=== PATIENT | male | born 1985 | race Caucasian/White ===

== ENCOUNTER 2018-12-11 02:38 | Inpatient (IN) | payer SELFPAY ==
[2018-12-11] MEDS ORDERED: TETANUS & DIPHTHERIA TOX,ADULT 0.5 ML VIAL ONE (03:09)
[2018-12-11] MEDS ORDERED: CEFTRIAXONE/SWI 1gm 1 GM/10 ML SYR ONE (03:09)
[2018-12-11] MEDS ORDERED: HYDROCODONE/APAP 10/325 TAB ONE (03:28)
[2018-12-11 04:23] LABS: Potassium 3.3 mmol/L (3.5-5.1)
[2018-12-11 04:37] LABS: Absolute Lymphocytes (CBC) 1.9 K/uL (0.7-4.9); Basophils % 1.3 % (0-1.3); Hematocrit 41.4 % (39.6-49.0); Lymphocytes % 17.4 % (15.3-44.8); MPV 6.6 fL (7.6-11.3); RBC Red Blood Cell Count 4.62 M/uL (4.33-5.43)
--- NOTE | 2018-12-11 06:23 | EDPHYS ---
Physician Documentation [facility] Name: Boyd Sherman Age: 33 yrs Sex: Male : 1985 Arrival Date: 12/11/2018 Time: 03:29 Bed 15 Private MD: ED Physician Elian Dutton HPI: 12/11 06:03 This 33 yrs old Male presents to ER via Unassigned with complaints of Hand gs Pain. 06:03 The patient or guardian reports pain, swelling, tenderness. The complaints affect the gs right hand diffusely. Context: The problem was sustained at home, resulted from using own fist to strike. Onset: The symptoms/episode began/occurred suddenly. Modifying factors: The symptoms are alleviated by nothing, the symptoms are aggravated by nothing. Associated signs and symptoms: Pertinent negatives: numbness distally. Severity of symptoms: At their worst the symptoms were severe, in the emergency department the symptoms are unchanged. The patient has not experienced similar symptoms in the past. Historical: - PMHx: 06:04 Hypertension; gs - Social history:: Patient/guardian denies using street drugs, The patient lives at home. ROS: 06:04 All other systems are negative. gs Exam: 06:04 Head/Face: Normocephalic, atraumatic. Eyes: Pupils equal round and reactive to light, gs extra-ocular motions intact. Lids and lashes normal. Conjunctiva and sclera are non-icteric and not injected. Cornea within normal limits. Periorbital areas with no swelling, redness, or edema. ENT: Nares patent. No nasal discharge, no septal abnormalities noted. Tympanic membranes are normal and external auditory canals are clear. Oropharynx with no redness, swelling, or masses, exudates, or evidence of obstruction, uvula midline. Mucous membranes moist. Neck: Trachea midline, no thyromegaly or masses palpated, and no cervical lymphadenopathy. Supple, full range of motion without nuchal rigidity, or vertebral point tenderness. No Meningismus. Chest/axilla: Normal chest wall appearance and motion. Nontender with no deformity. No lesions are appreciated. Cardiovascular: Regular rate and rhythm with a normal S1 and S2. No gallops, murmurs, or rubs. Normal PMI, no JVD. No pulse deficits. Respiratory: Lungs have equal breath sounds bilaterally, clear to auscultation and percussion. No rales, rhonchi or wheezes noted. No increased work of breathing, no retractions or nasal flaring. Abdomen/GI: Soft, non-tender, with normal bowel sounds. No distension or tympany. No guarding or rebound. No evidence of tenderness throughout. Back: No spinal tenderness. No costovertebral tenderness. Full range of motion. Neuro: Awake and alert, GCS 15, oriented to person, place, time, and situation. Cranial nerves II-XII grossly intact. Motor strength 5/5 in all extremities. Sensory grossly intact. Cerebellar exam normal. Normal gait. 06:04 Constitutional: The patient appears alert, awake. 06:04 Musculoskeletal/extremity: ROM: limited active range of motion, limited passive range of motion, Circulation is intact in all extremities. 06:04 Skin: abscess, that is moderate sized, with fluctuance, cellulitis, that is severe. Vital Signs: 03:00 BP 160 / 93; Pulse 93; Resp 16; Pulse Ox 96% on R/A; lc1 04:00 BP 150 / 94; Pulse 87; Resp 18; Pulse Ox 98% on R/A; lc1 05:03 BP 148 / 98; Pulse 79; Resp 18; Pulse Ox 99% on R/A; lc1 06:30 BP 143 / 87; Pulse 80; Resp 17 S; Pulse Ox 99% on R/A; cc3 08:00 BP 129 / 93; Pulse 84; Resp 15; Temp 97.7; Pulse Ox 100% ; Weight 86.18 kg; Height 5 hb ft. 72 in. (335.28 cm); 09:30 BP 126 / 86; Pulse 80; Resp 16; Pulse Ox 99% on R/A; hb 08:00 Body Mass Index 7.67 (86.18 kg, 335.28 cm) hb MDM: 03:33 Patient medically screened. gs 06:04 Differential diagnosis: open fracture, closed fracture, abscess. Data reviewed: vital gs signs, nurses notes, lab test result(s). Physician consultation: Praany Mejias MD and will see patient in inpatient room. 12/11 04:24 Order name: Basic Metabolic Panel; Complete Time: 05:53 EDMS 12/11 04:39 Order name: CBC with Automated Diff; Complete Time: 05:53 EDMS 12/11 07:34 Order name: CBC with Automated Diff EDMS 12/11 07:34 Order name: CBC with Automated Diff EDMS 12/11 07:34 Order name: Comprehensive Metabolic Panel EDMS 12/11 07:34 Order name: Comprehensive Metabolic Panel EDMS 12/11 07:34 Order name: Magnesium EDMS 12/11 07:34 Order name: Magnesium EDMS 12/11 07:34 Order name: Phosphorus EDMS 12/11 07:34 Order name: Phosphorus EDMS 12/11 07:34 Order name: Protime (+INR) EDMS 12/11 07:34 Order name: Protime (+INR) EDMS 12/11 04:55 Order name: Hand Right W Con EDMS 12/11 05:54 Order name: Hand Right 3 View EDMS 12/11 06:37 Order name: NPO; Complete Time: 06:40 gs 12/11 07:33 Order name: CONS Pharmacy Consult EDMS 12/11 07:33 Order name: CONS Physician Consult EDMS 12/11 07:34 Order name: NPO EDMS 12/11 07:34 Order name: PTT, Activated Partial Thromb EDMS 12/11 07:34 Order name: PTT, Activated Partial Thromb EDMS Administered Medications: No medications were administered Disposition: 12/11/18 06:23 Hospitalization ordered by Fahad Sharma for Inpatient Admission. Preliminary diagnosis is Abscess of bursa, right hand. - Bed requested for Telemetry/MedSurg (Inpatient). - Status is Inpatient Admission. hb - Condition is Stable. - Problem is new. - Symptoms are unchanged. UTI on Admission? No Signatures: [facility] Enedina Talamantes RN RN Luisa Middleton RN RN Elian Dutton MD MD gs Corrections: (The following items were deleted from the chart) 04:54 04:23 CBC+H.LAB.BRZ ordered. EDMS EDMS 04:54 04:23 BASIC METABOLIC PANEL+C.LAB.BRZ ordered. EDLA EDMS 04:54 04:41 CT RIGHT HAND WO CONTRAST ordered. EDMS EDMS 09:23 06:23 Hospitalization Ordered by Fahad Sharma MD for Inpatient Admission. Preliminary dw diagnosis is Abscess of bursa, right hand. Bed requested for Telemetry/MedSurg (Inpatient). Status is Inpatient Admission. Condition is Stable. Problem is new. Symptoms are unchanged. UTI on Admission? No. gs 10:13 09:23 12/11/2018 06:23 Hospitalization Ordered by Fahad Sharma MD for Inpatient hb Admission. Preliminary diagnosis is Abscess of bursa, right hand. Bed requested for Telemetry/MedSurg (Inpatient). Status is Inpatient Admission. Condition is Stable. Problem is new. Symptoms are unchanged. UTI on Admission? No. dw
--- NOTE | 2018-12-11 06:23 | ER ---
Nurse's Notes [facility] Name: Boyd Sherman Age: 33 yrs Sex: Male : 1985 Arrival Date: 12/11/2018 Time: 03:29 Bed 15 Private MD: Diagnosis: Abscess of bursa, right hand Presentation: 12/11 04:20 Presenting complaint: see paper charting. lc1 Historical: - PMHx: 06:04 Hypertension; gs - Social history:: Patient/guardian denies using street drugs, The patient lives at home. Screenin:00 Abuse screen: Denies threats or abuse. Nutritional screening: No deficits noted. lc1 Tuberculosis screening: No symptoms or risk factors identified. Fall Risk None identified. Assessment: 02:00 General: see paper charting. lc1 05:03 Reassessment: No changes from previously documented assessment. Patient and/or family lc1 updated on plan of care and expected duration. Pain level reassessed. 05:13 Reassessment: Patient appears in no apparent distress at this time. Patient and/or cc3 family updated on plan of care and expected duration. Pain level reassessed. Patient is alert, oriented x 3, equal unlabored respirations, skin warm/dry/pink. Received patient from TERRELL Dukes as a case of right hand pain. Patient came back from CT scan department, awaiting result. Patient denies pain at this time. 06:30 Reassessment: Patient appears in no apparent distress at this time. Patient and/or cc3 family updated on plan of care and expected duration. Pain level reassessed. Patient is alert, oriented x 3, equal unlabored respirations, skin warm/dry/pink. 07:30 Reassessment: Patient appears in no apparent distress at this time. Patient and/or hb family updated on plan of care and expected duration. Pain level reassessed. Patient is alert, oriented x 3, equal unlabored respirations, skin warm/dry/pink. Admission ordered, awaiting room assignment at this time. 08:30 Reassessment: Patient appears in no apparent distress at this time. No changes from previously documented assessment. Patient and/or family updated on plan of care and expected duration. Pain level reassessed. Patient is alert, oriented x 3, equal unlabored respirations, skin warm/dry/pink. 09:30 Reassessment: Patient appears in no apparent distress at this time. No changes from hb previously documented assessment. Patient and/or family updated on plan of care and expected duration. Pain level reassessed. Patient is alert, oriented x 3, equal unlabored respirations, skin warm/dry/pink. Vital Signs: 03:00 BP 160 / 93; Pulse 93; Resp 16; Pulse Ox 96% on R/A; lc1 04:00 BP 150 / 94; Pulse 87; Resp 18; Pulse Ox 98% on R/A; lc1 05:03 BP 148 / 98; Pulse 79; Resp 18; Pulse Ox 99% on R/A; lc1 06:30 BP 143 / 87; Pulse 80; Resp 17 S; Pulse Ox 99% on R/A; cc3 08:00 BP 129 / 93; Pulse 84; Resp 15; Temp 97.7; Pulse Ox 100% ; Weight 86.18 kg; Height 5 hb ft. 72 in. (335.28 cm); 09:30 BP 126 / 86; Pulse 80; Resp 16; Pulse Ox 99% on R/A; hb 08:00 Body Mass Index 7.67 (86.18 kg, 335.28 cm) hb ED Course: 02:10 Inserted saline lock: 20 gauge in left antecubital area, using aseptic technique. Blood lc1 collected. 03:29 Patient arrived in ED. fc 03:32 Roseline Boyce is Primary Nurse. lc1 03:33 Elian Dutton MD is Attending Physician. gs 04:00 Patient has correct armband on for positive identification. Bed in low position. Side lc1 rails up X 1. Door closed. Noise minimized. Lights dimmed. Warm blanket given. 04:00 No provider procedures requiring assistance completed. lc1 04:38 Awaiting radiology results. lc1 05:00 Awaiting radiology results. lc1 05:35 Hand Right W Con In Process Unspecified. EDMS 06:17 Hand Right 3 View In Process Unspecified. EDMS 06:22 Fahad Sharma MD is Hospitalizing Provider. gs 07:00 Report given to TERRELL Moran. cc3 10:11 Patient admitted, IV remains in place. hb Administered Medications: No medications were administered Outcome: 06:23 Decision to Hospitalize by Provider. gs 10:11 Admitted to Med/surg accompanied by nurse, via wheelchair, room 213, with chart, Report hb called to EL RN 10:11 Condition: stable 10:11 Instructed on the need for admit, Demonstrated understanding of instructions. 10:13 Patient left the ED. hb Signatures: Dispatcher [employer] EDMS Monique Lawton RN RN Roseline Vargas lc1 Luisa Middleton RN RN Elian Dutton MD MD gs Cordel, Charlene cc3 Corrections: (The following items were deleted from the chart) 05:17 05:13 Reassessment: Patient appears in no apparent distress at this time. Patient cc3 and/or family updated on plan of care and expected duration. Pain level reassessed. Patient is alert, oriented x 3, equal unlabored respirations, skin warm/dry/pink. Patient came back from CT scan department, awaiting result. cc3 05:18 05:13 Reassessment: Patient appears in no apparent distress at this time. Patient cc3 and/or family updated on plan of care and expected duration. Pain level reassessed. Patient is alert, oriented x 3, equal unlabored respirations, skin warm/dry/pink. Received patient from TERRELL Dukes as a case of hand pain. Patient came back from CT scan department, awaiting result. Patient denies pain at this time. cc3
[2018-12-11] MEDS ORDERED: ACETAMINOPHEN 500 MG TAB PO PRN (07:26)
[2018-12-11] MEDS ORDERED: ONDANSETRON 4 MG/2 ML VIAL IV PRN (07:26)
[2018-12-11] MEDS ORDERED: HYDROMORPHONE HCL 1 MG/ML INJ IV PRN (07:26)
[2018-12-11] MEDS ORDERED: VANCOMYCIN/NS 1 gm 1 GM/250 ML BAG IVPB SCH (07:30)
[2018-12-11] MEDS ORDERED: NA CHLORIDE 0.9% 1,000 ML IV SCH (08:00)
[2018-12-11] MEDS ORDERED: Levofloxacin500mg IV 500 MG/100 ML BAG IV SCH (08:00)
--- NOTE | 2018-12-11 08:10 | RAD REPORT ---
EXAM DESCRIPTION: RAD - Hand Right 3 View - 12/11/2018 6:15 am CLINICAL HISTORY: Right hand pain status post injury FINDINGS: No acute fracture or dislocation is seen. Old fracture involves the fifth metacarpal. Soft tissue swelling is present along the dorsal soft tis sues of the hand. No bony destructive lesion noted
[2018-12-11] MEDS ORDERED: ENOXAPARIN 40 MG/0.4 ML SQ SCH (09:00)
[2018-12-11] MEDS ORDERED: VANCOMYCIN 1.5 GM in NA CHLORIDE 0.9% 500 ML IVPB SCH (09:00)
[2018-12-11 10:44] VITALS: BMI 29.7
--- NOTE | 2018-12-11 11:12 | P.HP ---
Certification for Inpatient Patient admitted to: Inpatient With expected LOS: >2 Midnights Patient will require the following post-hospital care: None Practitioner: I am a practitioner with admitting privileges, knowledge of patient current condition, hospital course, and medical plan of care. Services: Services provided to patient in accordance with Admission requirements found in Title 42 Section 412.3 of the Code of Federal Regulations Patient History Date of Service: 12/11/18 Reason for admission: hand abscess History of Present Illness: patient is a 33-year-old gentleman who came to the hospital and was found to have an abscess of the right hand. He states he was upset and punched a wall. He developed a secondary wound. Yesterday he states that it has more swollen and started having drainage. The he came to the emergency room for further evaluation. In the ER he had a large wound on his 3rd knuckle. The spoke to hand surgery and they are going to take patient to the OR. Continue with broad- spectrum antibiotic coverage at this time. Patient will need inpatient admission for further evaluation. Allergies Penicillins Allergy (Verified 08/07/11 08:38) Hives/Rash Home Medications: NK [No Home Meds] 12/11/18 - Past Medical/Surgical History Past Medical History: Patient denies medical history Past Surgical History: Patient denies surgical history - Family History Father Family History: Reviewed- Non-Contributory - Social History Smoking Status: Current every day smoker Alcohol use: No CD- Drugs: No Review of Systems 10-point ROS is otherwise unremarkable Physical Examination - Vital Signs Temperature: 97.7 F Blood Pressure: 126/86 Pulse: 80 Respirations: 16 Pulse Ox (%): 98 - Physical Exam General: Alert, In no apparent distress, Oriented x3 HEENT: Atraumatic, PERRLA, Mucous membr. moist/pink, EOMI, Sclerae nonicteric Neck: Supple, 2+ carotid pulse no bruit, No LAD, Without JVD or thyroid abnormality Respiratory: Clear to auscultation bilaterally, Normal air movement Cardiovascular: Regular rate/rhythm, Normal S1 S2, No murmurs Gastrointestinal: Normal bowel sounds, Soft and benign, Non-distended, No tenderness Musculoskeletal: No clubbing, Swelling, Tenderness, Warmth Integumentary: Tenderness/swelling, Erythema, Warmth Neurological: Normal gait, Normal speech, Normal strength at 5/5 x4 extr, Normal tone, Sensation intact, Cranial nerves 3-12 intact, Normal affect Lymphatics: No axilla or inguinal lymphadenopathy - Studies Laboratory Data (last 24 hrs) 12/11/18 03:35: Sodium 141, Potassium 3.3 L, BUN 12, Creatinine 1.00, Glucose 117 H 12/11/18 03:35: WBC 10.7, Hgb 14.3, Hct 41.4, Plt Count 235 12/11/18 03:33: Sodium Cancelled, Potassium Cancelled, BUN Cancelled, Creatinine Cancelled, Glucose Cancelled 12/11/18 03:33: WBC Cancelled, Hgb Cancelled, Hct Cancelled, Plt Count Cancelled Assessment & Plan - Problems (Diagnosis) (1) Hand abscess Current Visit: Yes Status: Acute - Plan 1. Continue with IV antibiotic 2. Continue with local wound care 3. Hand surgical consultation 4. Gentle IV hydration 5. Monitor CBC 6. Strict blood sugar monitoring 7. Pain control 8. GI and DVT prophylaxis Discharge Plan: Home Plan to discharge in: Greater than 2 days - Advance Directives Does patient have a Living Will: No Does patient have a Durable POA for Healthcare: No - Code Status/Comfort Care Code Status Assessed: Yes Code Status: Full Code Critical Care: No Time Spent Managing PTS Care (In Minutes): 45
[2018-12-11] MEDS ORDERED: PROPOFOL 200 MG/20 ML VIAL IV ONE (11:31)
[2018-12-11] MEDS ORDERED: FENTANYL CITR 100 MCG/2 ML ONE (11:31)
[2018-12-11] MEDS ORDERED: LIDOCAINE 1% MPF 5 ML VIAL ONE (11:31)
[2018-12-11] MEDS ORDERED: MIDAZOLAM HCL 2 MG/2 ML INJ ONE (11:31)
--- NOTE | 2018-12-11 11:42 | RAD REPORT ---
EXAM DESCRIPTION: CT - Hand Right W Con - 12/11/2018 5:58 am CLINICAL HISTORY: The patient is 33 years old and is Male; hand pain W/ abscess 3 DAYS AFTER INJURY TECHNIQUE: Axial computed tomography images of the right upper extremity with intravenous contrast. Sagittal and coronal reformatted images were created and reviewed. This CT exam was performed usi ng one or more of the following dose reduction techniques: automated exposure control, adjustment o f the mA and/or kV according to patient size, and/or use of iterative reconstruction technique. COMPARISON: No relevant prior studies available. FINDINGS: BONES/JOINTS: The bone mineralization and contour is normal. There is no acute fracture. SOFT TISSUES: A focal loculated fluid collection along the dorsum of the hand at the level of th e fourth metacarpal phalangeal joint is present. This collection measures approximately 2.1 x 0.9 cm. There is mild peripheral enhancement. Diffuse edema of the soft tissues of the dorsum of the hand is noted. IMPRESSION: Findings suggest small abscess with associated significant edema of the soft tissues of the dorsum of the hand as described. No underlying acute bony abnormality. Electronically signed by: Katey Spence MD 12/11/2018 5:27 AM CDT Due to temporary technical issues with the PACS/Fluency reporting system, reports are being signed by the in house radiologist as a courtesy to ensure prompt reporting. The interpreting radiologist is gonzález colmenares responsible for the content of the report.
[2018-12-11] MEDS ORDERED: PIPER/TAZO/NS 3.375gm 3.375 GM/100 ML BAG IVPB SCH (12:00)
[2018-12-11] MEDS ORDERED: CLINDAMYCIN INJ 600 MG in NA CHLORIDE 0.9% 50 ML IV SCH (12:00)
[2018-12-11] MEDS ORDERED: KETOROLAC 30 MG/ML INJ ONE (13:04)
[2018-12-11] MEDS ORDERED: ONDANSETRON 4 MG/2 ML VIAL ONE (13:05)
[2018-12-11] MEDS ORDERED: CODEINE 30MG/APAP 300MG TAB PO PRN (13:25)
[2018-12-11 13:56] VITALS: BP 143/92; TEMP 97.9; O2SAT 98
--- NOTE | 2018-12-12 00:45 | OP ---
Surgeon: Pranay Mejias MD Preoperative Diagnosis: Infected right hand. Postoperative Diagnosis: Infected right hand. Procedure Performed: Debridement of skin and subcutaneous tissue, incision and drainage of abscess. Anesthesia: General. Description Of Procedure: After satisfactory induction of general anesthesia, right hand was prepped with Betadine scrub, Betadine paint, dry sterile drapes placed in the usual manner. The arm was pierre vated. Tourniquet was inflated to 250 mmHg. Hand placed on the [place] table. Elliptical incision outlined over the metacarpal head and extended proximally and distally. 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 Flaps undermined curetted, scrubbed with scrub brush, and jet lava ge irrigated with 3 L of dilute Betadine solution. Tourniquet released. Electrocautery used for hem ostasis. Wound packed with Betadine quarter-inch Nu Gauze, 2-inch Lottie, and Kerlix. Patient tolera armando the procedure well and returned to Recovery. HUSSAIN/LADONNA Voice ID: [id number] Report ID: [id number]
== END 2018-12-11 17:17 | disposition home or self-care (01) | DRG 603 ==
LOC: ER 02:38 → ERHOLD 07:27 → 2ND 09:54
PROVIDERS: ADMIT Hospitalist; ATTEND Hospitalist
PROC: 0J9J0ZX Drainage of Right Hand Subcutaneous Tissue and Fascia, Open Approach, Diagnostic (ICD-10-PCS; principal; 2018-12-11 12:00)
DX: L02.511 Cutaneous abscess of right hand (principal); B95.62 Methicillin resistant Staphylococcus aureus infection as the cause of diseases classified elsewhere; Z88.0 Allergy status to penicillin; F17.210 Nicotine dependence, cigarettes, uncomplicated
CPT/HCPCS: 36415; 73201; 80048; 85025; 87070; 87075; 87077; 87186; 87205; 90714; 99285; J0696; J1170; J2250; J2405; J2704; J3010; J7030; Q9967

== ENCOUNTER 2018-12-21 17:38 | Emergency (ER) | payer SELFPAY ==
--- NOTE | 2018-12-21 18:18 | ER ---
Nurse's Notes [facility] Name: Boyd Sherman Age: 33 yrs Sex: Male : 1985 Arrival Date: 12/21/2018 Time: 17:41 Bed 13 Private MD: None, None Diagnosis: Cellulitis of right upper limb Presentation: 12/21 17:43 Presenting complaint: Patient states: He was here 2 weeks ago because he hit the wall, aj1 he got an infection in his knuckles and they drained it, but it got infected again and it has been draining pus. Denies fever. Transition of care: patient was not received from another setting of care. Complicating Factors: There are no complicating factors for this patient. Onset of symptoms was 2018. Risk Assessment: Do you want to hurt yourself or someone else? Patient reports no desire to harm self or others. Initial Sepsis Screen: Does the patient meet any 2 criteria? HR > 90 bpm. No. Patient's initial sepsis screen is negative. Does the patient have a suspected source of infection? Yes: Skin breakdown/wound. Care prior to arrival: None. 17:43 Method Of Arrival: Ambulatory aj1 17:43 Acuity: VERNA 4 aj1 Triage Assessment: 17:45 General: Appears in no apparent distress. comfortable, Behavior is calm, cooperative, aj1 appropriate for age. Pain: Denies pain. Neuro: Level of Consciousness is awake, alert, obeys commands. Cardiovascular: Patient's skin is warm and dry. Respiratory: Airway is patent Respiratory effort is even, unlabored, Respiratory pattern is regular, symmetrical. Injury Description: Laceration sustained to right hand. Historical: - Allergies: 17:45 PENICILLINS; aj1 - Home Meds: 17:45 None [Active]; aj1 - PMHx: 17:45 Hypertension; aj1 - PSHx: 17:45 None; aj1 - Immunization history:: Flu vaccine status is unknown. - Social history:: Smoking status: Patient uses tobacco products, smokes one-half pack cigarettes per day. - Ebola Screening: : Patient denies travel to an Ebola-affected area in the 21 days before illness onset. Screenin:50 Abuse screen: Denies threats or abuse. Nutritional screening: No deficits noted. rb1 Tuberculosis screening: No symptoms or risk factors identified. Fall Risk None identified. Assessment: 17:50 General: Appears in no apparent distress. comfortable, Behavior is calm, cooperative, rb1 Denies fever. Pain: Complains of pain in right hand Pain currently is 9 out of 10 on a pain scale. Neuro: Level of Consciousness is awake, alert, obeys commands, Oriented to person, place, time, situation. Cardiovascular: Capillary refill < 3 seconds is brisk in bilateral fingers. Respiratory: Airway is patent Respiratory effort is even, unlabored, Respiratory pattern is regular, symmetrical. GI: No signs and/or symptoms were reported involving the gastrointestinal system. : No signs and/or symptoms were reported regarding the genitourinary system. Derm: Wound noted right hand Wound is open wound with purulent discharge noted. Surrounding tissue is red. No bleeding noted at this time. Musculoskeletal: Range of motion: intact in all extremities. Injury Description: Laceration sustained to right hand is contaminated, not bleeding. 18:45 Reassessment: Patient appears in no apparent distress at this time. No changes from rb1 previously documented assessment. Vital Signs: 17:45 BP 178 / 100; Pulse 103; Resp 20; Temp 98.2; Pulse Ox 99% on R/A; Weight 86.18 kg (R); aj1 Height 5 ft. 7 in. (170.18 cm) (R); Pain 0/10; 18:45 BP 152 / 95; Pulse 98; Resp 19; Temp 98.1(O); Pulse Ox 99% ; Pain 2/10; rb1 17:45 Body Mass Index 29.76 (86.18 kg, 170.18 cm) aj1 ED Course: 17:41 Patient arrived in ED. ag5 17:41 None, None is Private Physician. ag5 17:45 Triage completed. aj1 17:45 Arm band placed on Patient placed in an exam room. aj1 17:48 Spring Wilkins FNP is PHCP. ny 17:48 Jd Pack MD is Attending Physician. ny 17:50 Patient has correct armband on for positive identification. Bed in low position. Call rb1 light in reach. Side rails up X 1. Pulse ox on. NIBP on. 17:55 Jazmine Benitez, RN is Primary Nurse. rb1 18:46 Dressings: Kerlix X 1; right hand non-adherent dressing x 1 right hand. Irrigation of kj1 laceration. 18:58 No provider procedures requiring assistance completed. Patient did not have IV access rb1 during this emergency room visit. Administered Medications: No medications were administered Outcome: 18:17 Discharge ordered by . ny 18:58 Patient left the ED. rb1 18:58 Discharged to home ambulatory, with family. rb1 18:58 Condition: stable 18:58 Discharge instructions given to patient, Instructed on discharge instructions, follow up and referral plans. medication usage, Demonstrated understanding of instructions, follow-up care, medications, Prescriptions given X 2. Signatures: Isela Cruz, RN RN aj1 Spring Wilkins, AUTOMATIC SPOOLER OPERATOR AUTOMATIC SPOOLER OPERATOR ny Jazmine Benitez RN RN rb1 Alec Calero ag5 Radha Cooper kj1
--- NOTE | 2018-12-21 18:19 | EDPHYS ---
Physician Documentation [facility] Name: Boyd Sherman Age: 33 yrs Sex: Male : 1985 Arrival Date: 12/21/2018 Time: 17:41 Bed 13 Private MD: None, None ED Physician Jd Pack HPI: 12/21 18:15 This 33 yrs old Male presents to ER via Ambulatory with complaints of nh Laceration To Hand, Wound Infection. 18:15 The patient has a laceration Patient had surgery approx 1 week ago for an infection on nh his right hand. Patient believes it may be infected again. Historical: - Allergies: 17:45 PENICILLINS; aj1 - Home Meds: 17:45 None [Active]; aj1 - PMHx: 17:45 Hypertension; aj1 - PSHx: 17:45 None; aj1 - Immunization history:: Flu vaccine status is unknown. - Social history:: Smoking status: Patient uses tobacco products, smokes one-half pack cigarettes per day. - Ebola Screening: : Patient denies travel to an Ebola-affected area in the 21 days before illness onset. ROS: 18:15 Constitutional: Negative for fever, chills, and weight loss, Eyes: Negative for injury, nh pain, redness, and discharge, ENT: Negative for injury, pain, and discharge, Neck: Negative for injury, pain, and swelling, Cardiovascular: Negative for chest pain, palpitations, and edema, Respiratory: Negative for shortness of breath, cough, wheezing, and pleuritic chest pain, Abdomen/GI: Negative for abdominal pain, nausea, vomiting, diarrhea, and constipation, Back: Negative for injury and pain, : Negative for injury, bleeding, discharge, and swelling, MS/Extremity: Negative for injury and deformity, Neuro: Negative for headache, weakness, numbness, tingling, and seizure, Psych: Negative for depression, anxiety, suicide ideation, homicidal ideation, and hallucinations. 18:15 Skin: Positive for discoloration, erythema, swelling, of the right hand. Exam: 18:15 Constitutional: This is a well developed, well nourished patient who is awake, alert, nh and in no acute distress. Head/Face: Normocephalic, atraumatic. Eyes: Pupils equal round and reactive to light, extra-ocular motions intact. Lids and lashes normal. Conjunctiva and sclera are non-icteric and not injected. Cornea within normal limits. Periorbital areas with no swelling, redness, or edema. ENT: Nares patent. No nasal discharge, no septal abnormalities noted. Tympanic membranes are normal and external auditory canals are clear. Oropharynx with no redness, swelling, or masses, exudates, or evidence of obstruction, uvula midline. Mucous membranes moist. Neck: Trachea midline, no thyromegaly or masses palpated, and no cervical lymphadenopathy. Supple, full range of motion without nuchal rigidity, or vertebral point tenderness. No Meningismus. Chest/axilla: Normal chest wall appearance and motion. Nontender with no deformity. No lesions are appreciated. Cardiovascular: Regular rate and rhythm with a normal S1 and S2. No gallops, murmurs, or rubs. Normal PMI, no JVD. No pulse deficits. Respiratory: Lungs have equal breath sounds bilaterally, clear to auscultation and percussion. No rales, rhonchi or wheezes noted. No increased work of breathing, no retractions or nasal flaring. Abdomen/GI: Soft, non-tender, with normal bowel sounds. No distension or tympany. No guarding or rebound. No evidence of tenderness throughout. Back: No spinal tenderness. No costovertebral tenderness. Full range of motion. MS/ Extremity: Pulses equal, no cyanosis. Neurovascular intact. Full, normal range of motion. Neuro: Awake and alert, GCS 15, oriented to person, place, time, and situation. Cranial nerves II-XII grossly intact. Motor strength 5/5 in all extremities. Sensory grossly intact. Cerebellar exam normal. Normal gait. Psych: Awake, alert, with orientation to person, place and time. Behavior, mood, and affect are within normal limits. 18:15 Skin: cellulitis, that is moderate, on the right hand. Vital Signs: 17:45 BP 178 / 100; Pulse 103; Resp 20; Temp 98.2; Pulse Ox 99% on R/A; Weight 86.18 kg (R); aj1 Height 5 ft. 7 in. (170.18 cm) (R); Pain 0/10; 18:45 BP 152 / 95; Pulse 98; Resp 19; Temp 98.1(O); Pulse Ox 99% ; Pain 2/10; rb1 17:45 Body Mass Index 29.76 (86.18 kg, 170.18 cm) aj1 MDM: 17:48 Patient medically screened. ne 18:15 Data reviewed: vital signs, I have discussed the patient's presentation/case with the ne attending Emergency Department Physician; and as a result, I will. Counseling: I had a detailed discussion with the patient and/or guardian regarding: the historical points, exam findings, and any diagnostic results supporting the discharge/admit diagnosis, the need for outpatient follow up, to return to the emergency department if symptoms worsen or persist or if there are any questions or concerns that arise at home. Administered Medications: No medications were administered Disposition: 12/22 07:36 Co-signature as Attending Physician, Jd Pack MD. Chart complete. rn Disposition: 12/21/18 18:17 Discharged to Home. Impression: Cellulitis of right upper limb. - Condition is Stable. - Discharge Instructions: Cellulitis, Adult. - Prescriptions for Doxycycline Hyclate 100 mg Oral Tablet - take 1 tablet by ORAL route every 12 hours; 20 tablet. Bactrim DS 800- 160 mg Oral Tablet - take 1 tablet by ORAL route every 12 hours for 10 days; 20 tablet. - Medication Reconciliation Form, Thank You Letter, Antibiotic Education, Prescription Opioid Use form. - Follow up: Private Physician; When: 5 - 6 days; Reason: Recheck today's complaints. - Problem is new. - Symptoms are unchanged. Signatures: Isela Cruz RN RN aj1 Spring Wilkins, HYPERBARIC TECHNICIAN [facility] Jd Pack MD MD rn Barber, Rebecca RN RN rb1 Corrections: (The following items were deleted from the chart) 12/21 18:58 18:17 12/21/2018 18:17 Discharged to Home. Impression: Cellulitis of right upper limb. rb1 Condition is Stable. Forms are Medication Reconciliation Form, Thank You Letter, Antibiotic Education, Prescription Opioid Use. Follow up: Private Physician; When: 5 - 6 days; Reason: Recheck today's complaints. Problem is new. Symptoms are unchanged. ne
[2018-12-21 22:14] VITALS: BP 178/100; TEMP 98.2; O2SAT 99
== END 2018-12-21 18:58 | disposition home or self-care (01) ==
LOC: ER 17:38
DX: L03.113 Cellulitis of right upper limb (principal); F17.210 Nicotine dependence, cigarettes, uncomplicated; Z88.0 Allergy status to penicillin
CPT/HCPCS: 99283